=== PATIENT | male | born 1995 | race Caucasian/White ===

== ENCOUNTER 2016-08-22 22:27 | Emergency (ER) | payer MEDICAID ==
[~2016-08-22] VITALS: Ht 162.6 cm; Wt 78.0 kg
[2016-08-22] MEDS ORDERED: PREDNISONE 20MG TABLET PO ONE (23:45)
[2016-08-22] MEDS ORDERED: KETOROLAC 60MG/2ML VIAL IM ONE (23:45)
[2016-08-22] MEDS ORDERED: DIAZEPAM 2 MG TABLET PO ONE (23:45)
[2016-08-23 00:05] VITALS: BP 127/78
== END 2016-08-23 00:40 | disposition home or self-care (01) ==
LOC: ER 22:28
DX: S39.012A Strain of muscle, fascia and tendon of lower back, initial encounter (principal); Z87.891 Personal history of nicotine dependence; X50.1XXA Overexertion from prolonged static or awkward postures, initial encounter; Y93.B9 Activity, other involving muscle strengthening exercises; Y92.89 Other specified places as the place of occurrence of the external cause
CPT/HCPCS: 96372; 99283; J1885; J7512